=== PATIENT | female | born 1985 | race American Indian/Alaskan Native ===

== ENCOUNTER 2020-07-26 10:21 | Emergency (ER) | payer SELFPAY ==
[2020-07-26 10:32] VITALS: BP 138/84
--- NOTE | 2020-07-26 10:45 | Emergency Department Report ---
Chief Complaint: Earache Stated Complaint: EAR INFECTION Time Seen by Provider: 07/26/20 10:39 - HPI History of Present Illness: 35-year-old -[place] female patient presents with complaints of left ear pain and decreased hearing x1 week. She denies any ear drainage, headache, ringing in the ear, or fever/chills/sweats. Patient rates her pain as a 6/10 in severity. No prior medical history per patient. On exam, patient has a cerumen impaction of the left ear. No tenderness with manipulation of the tragus or earlobe. Recommend patient try OTC Debrox and follow-up with the ENT specialist. She is well-appearing and stable for discharge home strict return precautions were discussed in detail with patient who verbalizes understanding. - Exam Vital Signs: Vital Signs 07/26/20 10:28 Temperature 98.7 F Pulse Rate 83 Respiratory 16 Rate Blood Pressure 138/84 O2 Sat by Pulse 100 Oximetry MSE screening note: Focused history and physical exam performed. Due to findings the following was ordered: ED Disposition for MSE Clinical Impression: Left ear impacted cerumen Disposition: Z-07 MED SCREENING EXAM-LEFT Is pt being admited?: No Condition: Stable Instructions: Earwax Buildup, Adult Additional Instructions: Please purchase [id number] Debrox and use as instructed. Follow-up with the ENT specialist within 3 to 5 days. Referrals: KEYON MUSA MD [Staff Physician] - 3-5 Days ED Physical Exam - General Limitations: No Limitations General appearance: alert, in no apparent distress - Head Head exam: Present: atraumatic, normocephalic - Eye Eye exam: Present: normal appearance - Expanded ENT Exam Expanded TM/Canal exam: Cerumen Impaction: Left TM Mouth exam: Present: normal external inspection Teeth exam: Present: normal inspection Throat exam: Positive: normal inspection - Neck Neck exam: Present: normal inspection, full ROM. Absent: lymphadenopathy - Respiratory Respiratory exam: Absent: respiratory distress - Cardiovascular Cardiovascular Exam: Present: regular rate - Extremities Exam Extremities exam: Present: full ROM - Neurological Exam Neurological exam: Present: alert, oriented X3 - Psychiatric Psychiatric exam: Present: normal affect, normal mood - Skin Skin exam: Present: warm, dry, intact, normal color. Absent: rash ED Review of Systems ROS: Stated complaint: EAR INFECTION Other details as noted in HPI Constitutional: denies: chills, fever, malaise, weakness ENT: ear pain Respiratory: denies: cough, shortness of breath Skin: denies: change in color
== END 2020-07-26 10:56 | disposition left against medical advice (07) ==
LOC: ED 10:21
DX: H61.22 Impacted cerumen, left ear (principal); Z53.21 Procedure and treatment not carried out due to patient leaving prior to being seen by health care provider